=== PATIENT | female | born 1960 | race Caucasian/White ===

== ENCOUNTER → 2017-04-11 | Outpatient (CLI) | payer BC ==
[~2017-04-11] MED LIST: ASPIR 8181 MG PO; CEFDINIR300 MG PO; CIPRODEX OTIC7.5 ML OTIC; CLOPIDOGREL75 MG PO; COUMADIN 3 MG TA3 M1 PO; CRESTOR10 MG PO; FISH OIL 1,001000 MG PO; FLUCONAZOLE200 MG PO; GABAPENTIN100 MG PO; LEVOTHYROXIN0.112 M1 PO; MEDROLDOSEPACK PO; MUCINEX TA600 MG/TA2 PO; MULTIVITAMINS PO; NAPROSYN500 M1 PO; NORCO 5-325 TA1 EACH PO; PERCOCET 5-3251 EACH PO; PLAVIX 75 MG TA75 M1 PO; PREDNISONE 10 M10 MG PO; PROTONIX40 M1 PO; ROBAXIN500 MG PO; SIMVASTATIN40 MG PO; SINGULAIR 10 MG10 M1 PO; SYMBICORT80 MCG/4.1 INH; VENTOLIN HFA 1818 GM INH; VITAMIN E1000 UNIT PO; ZPAK PO
== END ==
LOC: M.CT 04-08 13:00 → M.RAD 04-08 13:30 → M.CT 04-09 13:00 → M.RAD 10:30 → M.CT 11:00
DX: N64.4 Mastodynia (principal); E03.9 Hypothyroidism, unspecified; R59.0 Localized enlarged lymph nodes

== ENCOUNTER 2018-04-28 12:26 | Emergency (ER) | payer BC ==
[~2018-04-28] VITALS: Ht 157.5 cm; Wt 68.0 kg
[2018-04-28] MEDS ORDERED: SYNTHROID100 MC1 PO (12:46)
[2018-04-28] MEDS ORDERED: NORCO 10-325 T1 EACH PO (12:47)
[2018-04-28] MEDS ORDERED: ZANTAC 150MG T150 MG PO (12:48)
[2018-04-28] MEDS ORDERED: OMEPRAZOLE20 M2 PO (12:48)
[2018-04-28] MEDS ORDERED: ULTRAM 50MG TAB50 MG PO (12:48)
[2018-04-28] MEDS ORDERED: SINGULAIR 10 MG10 M1 PO (12:48)
[2018-04-28] MEDS ORDERED: MEDROLDOSEPACK PO (15:46)
[2018-04-28] MEDS ORDERED: FLEXERIL PO (15:46)
[2018-04-28 16:11] VITALS: BP 186/78
== END 2018-04-28 16:12 | disposition home or self-care (01) ==
LOC: M.ERS 12:26
DX: M51.36 Other intervertebral disc degeneration, lumbar region (principal); M54.31 Sciatica, right side; Z91.041 Radiographic dye allergy status; Z88.5 Allergy status to narcotic agent; Z87.891 Personal history of nicotine dependence; Z90.710 Acquired absence of both cervix and uterus

== ENCOUNTER → 2018-04-29 | Outpatient (CLI) | payer BC ==
[~2018-04-29] MED LIST changes: +FLEXERIL PO; +NORCO 10-325 T1 EACH PO; +OMEPRAZOLE20 M2 PO; +SYNTHROID100 MC1 PO; +ULTRAM 50MG TAB50 MG PO; +ZANTAC 150MG T150 MG PO
== END ==
LOC: M.MRI 15:58
DX: M51.26 Other intervertebral disc displacement, lumbar region (principal); M25.551 Pain in right hip

== ENCOUNTER → 2018-05-08 | Outpatient (CLI) | payer BC | LOC: M.MRI 16:16 | DX: M47.816 Spondylosis without myelopathy or radiculopathy, lumbar region (principal); M48.061 Spinal stenosis, lumbar region without neurogenic claudication; Z88.8 Allergy status to other drugs, medicaments and biological substances; Z88.5 Allergy status to narcotic agent; Z91.041 Radiographic dye allergy status ==

== ENCOUNTER → 2018-05-14 | Outpatient (CLI) | payer BC ==
[~2018-05-14] MED LIST changes: +AMITRIPTYLINE H10 M3 PO
--- NOTE | ~2018-05-14 | PAINCON ---
[address] [address] PAIN MANAGEMENT CONSULTATION Name: FILIPPO RANDHAWA [facility]: [facility] JOSE RAULGrazyna Rodriguez#: [id number] Admission: 05/14/18 Attend Phys: Rinku Clay MD Discharge: Date of : 60 Report #: [id number] THIS REPORT FOR: //name// CC: Rinku Ugarte DATE OF SERVICE: 05/14/2018 CHIEF COMPLAINT: Low back pain in the buttocks, which is burning and running down the right leg and into the foot. HISTORY: The patient is a 57-year-old female, who has been referred to the pain clinic for evaluation. The patient states that she fell on the ice when she was getting out of her car. This was on 04/28/2018. She denies any problem with bowel or bladder dysfunction or incontinence. She did have a history of DVT in the past. She has been evaluated with ultrasound. The patient told that she may have piriformis syndrome involving her hip and leg. She underwent a right hip injection on 04/08/2018, did not find that was significantly helpful. She does have some shooting pain down into her foot. She finds that she is noting difficulty in getting comfortable. She does have some perceived weakness in her right leg area. The patient was on a blood thinner medication, Plavix. She has a perception that there is knot in the right hip area near the outer portion of her hip. She has complained of some pain and discomfort in the groin area on the right as well. The patient has been sleeping in her recliner. PAST MEDICAL HISTORY: 1. Bipolar disorder, hyperlipidemia, and hypothyroidism. 2. Peripheral artery disease, piriformis syndrome. 3. Myofascial pain. 4. Endovascular stent of the right common iliac artery. PAST SURGICAL HISTORY: Hysterectomy, bilateral tubal ligation, bladder suspension, foot surgery, lumbar diskectomy, middle ear surgery, tonsillectomy, vaginal delivery x 2, and blood clot in right leg in 2012. CURRENT MEDICATIONS: Ventolin inhaler 2 puffs q.4 hours p.r.n., Elavil 10 mg at bedtime, aspirin 81 mg chewable, Symbicort 80/4.5 b.i.d., clopidogrel 75 mg, Flexeril 10 mg t.i.d., gabapentin 100 mg 2 tablets t.i.d., hydrocodone 10/325 q.4 hours p.r.n., Synthroid 100 mcg, and Robaxin 500 mg q.8 hours. ALLERGIES: CONTRAST DYE, CODEINE, AND IODINE. SOCIAL HISTORY: The patient is not working. REVIEW OF SYSTEMS: Generally in good health, weight change, decreased appetite, fatigue, weakness, headaches, hearing loss, loss of appetite, [place] [address] PAIN MANAGEMENT CONSULTATION Name: FILIPPO RANDHAWA Room: [facility]#: [id number] Admission: 05/14/18 Attend Phys: Rinku Clay MD Discharge: Date of : 60 Report #: [id number] movement, nausea and vomiting, joint pain, joint stiffness, weakness of muscles and joints, muscle pain and cramps, difficulty walking, numbness, tingling, nervousness, and depression. PAIN CLINIC ASSESSMENT AND PQRS: 1. History of osteoarthritic changes in the low back area. The patient has not been treated for rheumatoid arthritis. 2. Pain intensity score is 10/10. The patient states she walks to loosen it up. It is now 5/10 at the time of our visit. 3. Fall risk. The patient fell on the ice after getting out of her car in the later part of 03/2018. 4. Blood thinner. The patient has been treated with Plavix. 5. Hypertension. The patient is not being treated for hypertension. 6. Opioids greater than 6 weeks. The patient has received some opioid medications. 7. Risk assessment tool, moderate for opioid use. 8. Functional assessment tool. 9. Recreational drug use. The patient denies use of recreational drugs. 10. Tobacco. The patient has smoked one half pack of cigarettes per day for last 35 years. Discussed the benefits of smoking cessation. 11. Alcohol. The patient denies frequent use of alcoholic beverages. PHYSICAL EXAMINATION: GENERAL: The patient is a well-developed, well-nourished white female. She appears her stated age. She is alert and oriented x 3. Her affect is appropriate. Speech is slow. Height is 5 feet 2 inches, weight is 145 pounds, and BMI is 26. VITAL SIGNS: Blood pressure is 153/96, heart rate is 88, respiratory rate is 16, room air saturation is 94%, and temperature is 98 degrees. HEENT: Normocephalic, atraumatic. Extraocular eye muscles intact. Sclerae nonicteric. Mucous membranes are moist. NECK: Without adenopathy or JVD. EXTREMITIES: Upper extremity muscle strength is judged to be 5/5 for the major muscle groups. The patient is somewhat hyperreflexic with +3 biceps responses, +2 for the triceps and difficult to appreciate for brachioradialis. The patient complains of some pain and discomfort in the right area consistent with the distribution of piriformis muscle. She has some complaint of pain and discomfort down into her right leg. She has pain in the right buttocks with pain radiating down the L5-S1 dermatomal distribution. She states that she has easy bruising on the posterior portion of her right hamstring area. Deep tendon reflexes are +2 at the knees bilaterally and +1 at the ankles bilaterally. Right lateral bending causes some increased pulling in her low back area. Left lateral bending was not very problematic. Lumbar extension was not very problematic. The patient has some soreness in the area of her greater trochanteric area. The patient is without significant scoliosis, kyphosis, [place] [address] PAIN MANAGEMENT CONSULTATION Name: FILIPPO RANDHAWA BALJIT Room: [facility] JOSE RAUL Jennifer#: [id number] Admission: 05/14/18 Attend Phys: Rinku Clay MD Discharge: Date of : 60 Report #: [id number] LABORATORY DATA: MRI of the lumbar spine dated 05/08/2018: 1. L3-L4. Slight loss of disk height is noted with slight desiccation. There is slight broad-based disk bulging, but the central canal remains patent. There is, however, mild bilateral foraminal stenosis, slightly more prominent on the left with effacement of the exiting nerve. 2. L4-L5. Slight loss of disk height is noted with slight desiccation: Broad-based disk bulging is present. This is more prominent in the right foraminal location resulting in [id number] right foraminal stenosis that abuts in particular effacing the exiting nerve. The nerve itself is focally prominent in size, which is similar to the appearance in 2012, therefore, chronic. The left foramen remains patent. 3. L5-S1. No significant central canal or foraminal stenosis present. Incidental perineural cysts are present in the S2 sacral level that remain stable. MRI of the right hip dated 04/29/2018, no fracture or dislocation. A circumferential disk bulge at L4-L5, not well assessed on this hip MRI. IMPRESSION: 1. Left low back pain with pain in the buttocks as well as some pain that is radiating down into the right leg. Tenderness over the right piriformis area. 2. Bipolar disorder, hyperlipidemia, and hypothyroidism. 3. Peripheral artery disease, piriformis syndrome. 4. Myofascial pain. 5. Endovascular stent of the right common iliac artery. RECOMMENDATIONS: We have discussed treatment options with the patient. The possibility of an injection in the area of the piriformis was discussed. We also discussed the possible complications of the procedure. The patient is on Plavix. She has been given a script for Elavil to take at bedtime, 30 mg 1 p.o. at bedtime. She has also tried physical therapy 3 times a week. The patient may improve with an epidural steroid injection. She does have pain, which she describes radiating down in the L4-L5 dermatomal distribution on the right leg down involving her ankle. She will return to the pain clinic at which time she will then undergo a piriformis muscle injection. The patient may well benefit from epidural steroid injection at the L5/L4. The patient does on MRI show severe right foraminal stenosis abutting and effacing the exiting nerve root in this area. We would like to thank you for letting us to participate in her care. The patient will stop taking the Plavix medication. By: [id number] Clay MD /ADELINE
== END ==
LOC: M.PC 04:48
DX: M54.5 Low back pain (principal); M79.604 Pain in right leg; M79.18 Myalgia, other site; E78.5 Hyperlipidemia, unspecified; E03.9 Hypothyroidism, unspecified; I73.9 Peripheral vascular disease, unspecified; F31.9 Bipolar disorder, unspecified; I72.3 Aneurysm of iliac artery

== ENCOUNTER → 2018-07-10 | Outpatient (CLI) | payer BC | LOC: M.RAD 13:16 | DX: Z12.31 Encounter for screening mammogram for malignant neoplasm of breast (principal) ==

== ENCOUNTER → 2019-12-09 | Outpatient (CLI) | payer OTHER | LOC: M.RAD 14:00 | DX: Z12.31 Encounter for screening mammogram for malignant neoplasm of breast (principal) ==

== ENCOUNTER → 2021-01-11 | Outpatient (CLI) | payer OTHER | LOC: M.RAD 11:00 | DX: Z12.31 Encounter for screening mammogram for malignant neoplasm of breast (principal) ==